=== PATIENT | female | born 1940 | race Caucasian/White ===

== ENCOUNTER 2020-05-03 17:10 | Inpatient (IN) | payer MEDICARE, MEDICAID ==
[~2020-05-03] VITALS: Ht 157.5 cm; Wt 64.0 kg
[2020-05-03] MEDS ORDERED: METF-960 PO (17:17)
[2020-05-03] MEDS ORDERED: LEVO50 PO (17:17)
[2020-05-03] MEDS ORDERED: AMLO-257 PO (17:17)
[2020-05-03] MEDS ORDERED: ASPI-728 PO (17:17)
[2020-05-03] MEDS ORDERED: LOSA50TA37 PO (17:17)
[2020-05-03] MEDS ORDERED: MORPHINE SULFATE 4 MG/ML SYRINGE IVP ONE ×2 (18:30)
[2020-05-03] MEDS ORDERED: 0.9% SODIUM CHLORIDE 10 ML SYRINGE IVP PRN ×2 (18:45→20:45)
[2020-05-03] MEDS ORDERED: ACETAMINOPHEN 325 MG TABLET PO PRN ×2 (18:45→20:45)
[2020-05-03] MEDS ORDERED: ONDANSETRON HCL 4 MG/2 ML VIAL IVP PRN ×2 (18:45→20:45)
[2020-05-03] MEDS ORDERED: MORPHINE SULFATE 4 MG/ML SYRINGE IVP PRN (18:45)
[2020-05-03 18:59] LABS: CREATININE 2.16 mg/dL (0.60-1.30); POTASSIUM 5.7 mmol/L (3.5-5.1)
[2020-05-03 19:05] LABS: ALBUMIN 3.5 g/dL (3.4-5.0); BILIRUBIN,TOTAL 0.4 mg/dL (0.1-1.0); TOTAL PROTEIN, SERUM 7.9 g/dL (6.4-8.2)
[2020-05-03 19:07] LABS: HEMATOCRIT 32.2 % (36-46); HEMOGLOBIN 10.8 g/dL (12.0-16.0); MEAN CORPUSCULAR HEMOGLOBIN 30.5 pg (26.0-34.0); MEAN CORPUSCULAR HGB CONC 33.7 G/dL (31.0-37.0); MEAN CORPUSCULAR VOLUME 91 fL (80-100); PLATELET COUNT (AUTO) 260 K/uL (150-450); RED BLOOD CELL COUNT(AUTO) 3.56 MIL/uL (4.00-5.20); RED CELL DISTRIBUTION WIDTH 14.3 % (11.5-14.5)
[2020-05-03] MEDS ORDERED: INSULIN REGULAR, HUMAN 100 UNITS/ML IVP ONE (19:15)
[2020-05-03] MEDS ORDERED: DEXTROSE 25%-WATER 2.5 GM/10 ML SYRINGE IVP ONE (19:15)
[2020-05-03] MEDS ORDERED: SODIUM CHLORIDE 0.9% 1,000 ML IV ONE (19:15)
[2020-05-03] MEDS ORDERED: DEXTROSE 50%-WATER 25 GM/50 ML SYRINGE IVP ONE (19:45)
[2020-05-03] MEDS ORDERED: INSULIN REGULAR, HUMAN 100 UNITS/ML SQ ONE (20:45)
[2020-05-03] MEDS ORDERED: SODIUM POLYSTYRENE SULFONATE 15 GM/60 ML SUSPENSION BOTTLE PO ONE (20:45)
[2020-05-03] MEDS ORDERED: DEXTROSE 50%-WATER 25 GM/50 ML SYRINGE IVP PRN (20:45)
[2020-05-03] MEDS ORDERED: ALBUTEROL SULFATE 2.5 MG/0.5 ML NEB SOLUTION NEB ONE (21:00)
[2020-05-03] MEDS ORDERED: SODIUM CHLORIDE 0.9% 1,900 ML IV SCH (21:00)
[2020-05-03] MEDS ORDERED: INSULIN GLARGINE,HUM.REC.ANLOG 100 UNITS/ML SQ SCH (21:00)
[2020-05-03 21:02] LABS: BAND NEUTROPHILS % (MANUAL) 25 % (0-5); LYMPHOCYTES % (MANUAL) 4 % (22-44); MONOCYTES % (MANUAL) 5 % (2-9); SEGMENTED NEUTROPHILS % 66 % (40-70)
[2020-05-03] MEDS: FAMOTIDINE 10 MG/ML 2 ML VIAL IVP SCH (21:53)
[2020-05-03 22:28] LABS: GLUCOSE,POINT OF CARE 138 MG/DL (70-110)
[2020-05-03 22:45] VITALS: BP 130/63
[2020-05-03] MEDS ORDERED: SODIUM CHLORIDE 0.9% 500 ML IV ONE (22:45)
[2020-05-04] MEDS: HEPARIN SODIUM,PORCINE 5,000 UNITS/ML VIAL SQ SCH ×3 (00:34→16:26)
[2020-05-04 05:11] VITALS: BP 133/61
[2020-05-04] MEDS ORDERED: SODIUM CHLORIDE 0.9% 500 ML IV ONE (05:58)
[2020-05-04] MEDS: LEVOTHYROXINE SODIUM 50 MCG TABLET PO SCH (06:24)
[2020-05-04 06:26] LABS: BASOPHILS % (AUTO) 0.3 % (0.0-2.0); EOSINOPHILS % (AUTO) 0.1 % (1.0-6.0); HEMATOCRIT 27.2 % (36-46); HEMOGLOBIN 9.8 g/dL (12.0-16.0); LYMPHOCYTES # (AUTO) 1.1 K/uL (1.0-4.8); LYMPHOCYTES % (AUTO) 11.1 % (22.0-44.0); MEAN CORPUSCULAR HEMOGLOBIN 32.8 pg (26.0-34.0); MEAN CORPUSCULAR HGB CONC 36.2 G/dL (31.0-37.0); MEAN CORPUSCULAR VOLUME 91 fL (80-100); MONOCYTES # (AUTO) 0.5 K/uL (0.1-1.0); MONOCYTES % (AUTO) 4.9 % (2.0-9.0); NEUTROPHILS # (AUTO) 8.5 K/uL (1.8-7.7); NEUTROPHILS % (AUTO) 83.6 % (40.0-70.0); PLATELET COUNT (AUTO) 219 K/uL (150-450)
[2020-05-04 06:59] LABS: ALBUMIN 2.8 g/dL (3.4-5.0); BILIRUBIN,TOTAL 0.2 mg/dL (0.1-1.0); CALCIUM, TOTAL 8.3 mg/dL (8.8-10.5); CREATININE 1.26 mg/dL (0.60-1.30); POTASSIUM 4.4 mmol/L (3.5-5.1); TOTAL PROTEIN, SERUM 6.6 g/dL (6.4-8.2)
[2020-05-04 07:08] LABS: PROTHROMBIN TIME 10.2 SEC (9.4-11.6)
[2020-05-04 07:40] VITALS: BP 146/66
[2020-05-04] MEDS ORDERED: AmLODIPine BESYLATE 5 MG TABLET PO SCH (09:00)
[2020-05-04] MEDS ORDERED: LOSARTAN POTASSIUM 50 MG TABLET PO SCH (09:00)
[2020-05-04] MEDS ORDERED: SODIUM CHLORIDE 0.9% 1,000 ML IV ONE (09:45)
[2020-05-04] MEDS: ASPIRIN 81 MG CHEWABLE TABLET PO SCH (10:09)
[2020-05-04] MEDS: FAMOTIDINE 10 MG/ML 2 ML VIAL IVP SCH ×2 (10:09→21:19)
[2020-05-04 11:34] VITALS: BP 146/63
[2020-05-04 12:12] LABS: APPEARANCE,URINE CLEAR (CLEAR); BILIRUBIN,URINE NEGATIVE (NEGATIVE); GLUCOSE, URINE (UA) NEGATIVE (NEGATIVE); KETONES,URINE NEGATIVE (NEGATIVE); LEUKOCYTE ESTERASE ,URINE NEGATIVE (NEGATIVE); NITRATE,URINE NEGATIVE (NEGATIVE); OCCULT BLOOD,URINE NEGATIVE (NEGATIVE); PROTEIN,URINE TRACE (NEGATIVE); UROBILINOGEN,URINE 0.2 mg/dL (<=1.0)
[2020-05-04 12:45] LABS: BACTERIA,URINE None Seen /HPF (None Seen); RBC,URINE None Seen /HPF (0-2); SQUAMOUS EPITHELIAL CELL,UR Few /LPF (None Seen); WBC,URINE 0-2 /HPF (0-5)
[2020-05-04 15:49] LABS: GLUCOMETER DEV NAME(LOC) 6N.2; GLUCOSE,POINT OF CARE 139 MG/DL (70-110)
[2020-05-04 15:49] LABS: GLUCOMETER DEV NAME(LOC) 6N.2; GLUCOSE,POINT OF CARE 124 MG/DL (70-110)
[2020-05-04 17:24] VITALS: BP 134/64
[2020-05-04 20:00] VITALS: BP 171/66
[2020-05-04 21:03] LABS: GLUCOMETER DEV NAME(LOC) 6N.2; GLUCOSE,POINT OF CARE 87 MG/DL (70-110)
[2020-05-04] MEDS: CALCIUM CIT/VITAMIN D3 200 MG-250 UNITS TABLET PO SCH (21:19)
[2020-05-05] MEDS: RINGERS SOLUTION,LACTATED 1,000 ML IV SCH ×2 (00:01→10:00)
[2020-05-05 02:03] LABS: GLUCOMETER DEV NAME(LOC) 6S.1; GLUCOSE,POINT OF CARE 87 MG/DL (70-110)
[2020-05-05 05:26] VITALS: BP 159/70
[2020-05-05] MEDS: LEVOTHYROXINE SODIUM 50 MCG TABLET PO SCH (06:25)
[2020-05-05 06:52] LABS: GLUCOMETER DEV NAME(LOC) 6S.1; GLUCOSE,POINT OF CARE 116 MG/DL (70-110)
[2020-05-05 07:40] VITALS: BP 146/66
[2020-05-05] MEDS: HEPARIN SODIUM,PORCINE 5,000 UNITS/ML VIAL SQ SCH ×2 (08:00)
[2020-05-05] MEDS: FAMOTIDINE 10 MG/ML 2 ML VIAL IVP SCH ×2 (08:47→20:02)
[2020-05-05] MEDS: CALCIUM CIT/VITAMIN D3 200 MG-250 UNITS TABLET PO SCH ×2 (09:00→20:02)
[2020-05-05] MEDS: ASPIRIN 81 MG CHEWABLE TABLET PO SCH (09:00)
[2020-05-05] MEDS ORDERED: LIDOCAINE 1%/EPI 1:200,000/PF 10 ML VIAL ONE (09:53)
[2020-05-05] MEDS ORDERED: BUPIVACAINE HCL/PF 0.25% 30 ML VIAL ONE (09:53)
[2020-05-05] MEDS ORDERED: RINGERS SOLUTION,LACTATED 1,000 ML IV ONE (09:53)
[2020-05-05] MEDS ORDERED: BUPIVACAINE LIPOSOME/PF 1.3%-13.3MG/ML SUSPENSION 20 ML VIAL INJ ONE (10:00)
[2020-05-05] MEDS ORDERED: FentaNYL CITRATE-PF 100 MCG/2 ML VIAL IVP PRN (11:15)
[2020-05-05] MEDS ORDERED: ACETAMINOPHEN 1000 MG/ISO-OSM 100 ML IV ONE (11:15)
[2020-05-05] MEDS ORDERED: FentaNYL CITRATE-PF 100 MCG/2 ML VIAL IVP ONE (12:00)
[2020-05-05] MEDS ORDERED: LIDOCAINE/PF 2% 5 ML VIAL INJ ONE (12:00)
[2020-05-05] MEDS ORDERED: KETAMINE HCL 50 MG/ML 10 ML VIAL IVP ONE (12:00)
[2020-05-05] MEDS ORDERED: PROPOFOL 1% 20 ML VIAL IVP ONE (12:00)
[2020-05-05] MEDS ORDERED: ONDANSETRON HCL 4 MG/2 ML VIAL IVP ONE (12:00)
[2020-05-05] MEDS ORDERED: MIDAZOLAM HCL 2 MG/2 ML VIAL IVP ONE (12:00)
[2020-05-05 13:59] VITALS: BP 160/66
[2020-05-05 15:53] VITALS: BP 158/68
[2020-05-05] MEDS: MORPHINE SULFATE 4 MG/ML SYRINGE IVP PRN (16:15)
[2020-05-05] MEDS: INSULIN LISPRO 100 UNITS/ML SQ PRN ×2 (16:56→22:02)
[2020-05-05 17:05] LABS: GLUCOMETER DEV NAME(LOC) 6N.2; GLUCOSE,POINT OF CARE 323 MG/DL (70-110)
[2020-05-05] MEDS: CeFAZolin 1 GM/DEXTROSE 50 ML IV SCH (20:02)
[2020-05-05 20:14] VITALS: BP 145/60
[2020-05-05] MEDS: OXYGEN THERAPY IH SCH (20:38)
[2020-05-05 22:08] LABS: GLUCOMETER DEV NAME(LOC) 6S.1; GLUCOSE,POINT OF CARE 240 MG/DL (70-110)
[2020-05-06] MEDS: CeFAZolin 1 GM/DEXTROSE 50 ML IV SCH ×2 (04:16→11:38)
[2020-05-06 05:00] VITALS: BP 155/65
[2020-05-06] MEDS: LEVOTHYROXINE SODIUM 50 MCG TABLET PO SCH (05:57)
[2020-05-06] MEDS: INSULIN LISPRO 100 UNITS/ML SQ PRN ×4 (06:06→21:30)
[2020-05-06 07:08] LABS: ANION GAP 7 mmol/L (8-16); CALCIUM, TOTAL 8.9 mg/dL (8.8-10.5); CARBON DIOXIDE 26 mmol/L (22-29); CHLORIDE 104 mmol/L (98-107); CREATININE 0.88 mg/dL (0.60-1.30); GLUCOSE,RANDOM 230 mg/dL (70-110); POTASSIUM 4.8 mmol/L (3.5-5.1); SODIUM SERUM 137 mmol/L (136-145); UREA NITROGEN, BLOOD 24 mg/dL (7-18)
[2020-05-06 07:09] LABS: GLOMERULAR FILTR. RATE CALC > 60 mL/min (>60)
[2020-05-06 07:18] LABS: BASOPHILS % (AUTO) 0.1 % (0.0-2.0); EOSINOPHILS % (AUTO) 0 % (1.0-6.0); HEMATOCRIT 27.2 % (36-46); LYMPHOCYTES # (AUTO) 0.9 K/uL (1.0-4.8); LYMPHOCYTES % (AUTO) 8.1 % (22.0-44.0); MEAN CORPUSCULAR HEMOGLOBIN 29.8 pg (26.0-34.0); MEAN CORPUSCULAR HGB CONC 33.3 G/dL (31.0-37.0); MEAN CORPUSCULAR VOLUME 90 fL (80-100); MONOCYTES # (AUTO) 0.7 K/uL (0.1-1.0); MONOCYTES % (AUTO) 6.2 % (2.0-9.0); NEUTROPHILS # (AUTO) 9.8 K/uL (1.8-7.7); PLATELET COUNT (AUTO) 200 K/uL (150-450); RED BLOOD CELL COUNT(AUTO) 3.04 MIL/uL (4.00-5.20); RED CELL DISTRIBUTION WIDTH 13.7 % (11.5-14.5)
[2020-05-06 07:20] LABS: NEUTROPHILS % (AUTO) 85.6 % (40.0-70.0)
[2020-05-06] MEDS: OXYGEN THERAPY IH SCH ×2 (08:00→20:00)
[2020-05-06 08:47] VITALS: BP 150/67
[2020-05-06] MEDS: ENOXAPARIN SODIUM 30 MG/0.3 ML PF SYRINGE SQ SCH (08:49)
[2020-05-06] MEDS: ASPIRIN 81 MG CHEWABLE TABLET PO SCH (08:50)
[2020-05-06] MEDS: FAMOTIDINE 10 MG/ML 2 ML VIAL IVP SCH ×2 (08:50→21:26)
[2020-05-06] MEDS: CALCIUM CIT/VITAMIN D3 200 MG-250 UNITS TABLET PO SCH ×2 (08:50→21:27)
[2020-05-06 12:11] VITALS: BP 160/69
[2020-05-06 13:01] LABS: GLUCOMETER DEV NAME(LOC) 6N.2; GLUCOSE,POINT OF CARE 234 MG/DL (70-110)
[2020-05-06 15:53] LABS: GLUCOMETER DEV NAME(LOC) 6S.1; GLUCOSE,POINT OF CARE 212 MG/DL (70-110)
[2020-05-06 16:40] VITALS: BP 159/76
[2020-05-06] MEDS: MORPHINE SULFATE 4 MG/ML SYRINGE IVP PRN (16:41)
[2020-05-06 18:00] LABS: GLUCOMETER DEV NAME(LOC) 6N.2; GLUCOSE,POINT OF CARE 143 MG/DL (70-110)
[2020-05-06] MEDS ORDERED: HydrALAZINE HCL 10 MG TABLET PO SCH (18:15)
[2020-05-06 20:55] VITALS: BP 153/78
[2020-05-06 22:05] LABS: GLUCOMETER DEV NAME(LOC) 6N.2; GLUCOSE,POINT OF CARE 150 MG/DL (70-110)
[2020-05-06] MEDS ORDERED: AmLODIPine BESYLATE 5 MG TABLET PO ONE (22:27)
[2020-05-06 23:35] VITALS: BP 130/67
[2020-05-07 05:25] VITALS: BP 130/64
[2020-05-07] MEDS: LEVOTHYROXINE SODIUM 50 MCG TABLET PO SCH (05:33)
[2020-05-07] MEDS: MORPHINE SULFATE 4 MG/ML SYRINGE IVP PRN ×2 (05:51→10:30)
[2020-05-07] MEDS: INSULIN LISPRO 100 UNITS/ML SQ PRN ×2 (06:05→12:11)
[2020-05-07 06:41] LABS: GLUCOMETER DEV NAME(LOC) 6S.1; GLUCOSE,POINT OF CARE 147 MG/DL (70-110)
[2020-05-07] MEDS: OXYGEN THERAPY IH SCH (08:00)
[2020-05-07] MEDS: ENOXAPARIN SODIUM 30 MG/0.3 ML PF SYRINGE SQ SCH (08:45)
[2020-05-07] MEDS: CALCIUM CIT/VITAMIN D3 200 MG-250 UNITS TABLET PO SCH (08:45)
[2020-05-07] MEDS: ASPIRIN 81 MG CHEWABLE TABLET PO SCH (08:46)
[2020-05-07] MEDS: FAMOTIDINE 10 MG/ML 2 ML VIAL IVP SCH (08:46)
[2020-05-07] MEDS ORDERED: AmLODIPine BESYLATE 5 MG TABLET PO SCH (09:00)
[2020-05-07 09:43] VITALS: BP 134/59
[2020-05-07 11:33] VITALS: BP 117/55
[2020-05-07 15:47] VITALS: BP 117/53
[2020-05-07 20:33] LABS: GLUCOMETER DEV NAME(LOC) 6S.1; GLUCOSE,POINT OF CARE 176 MG/DL (70-110)
[2020-05-07 20:33] LABS: GLUCOMETER DEV NAME(LOC) 6S.1; GLUCOSE,POINT OF CARE 163 MG/DL (70-110)
[2020-05-08] MEDS ORDERED: METF-961 PO (22:50)
== END 2020-05-07 17:15 | DRG 481 ==
LOC: EMS 17:20 → 6N 18:43
PROVIDERS: ADMIT Internal Medicine; ATTEND Internal Medicine
PROC: 0QS706Z Reposition Left Upper Femur with Intramedullary Internal Fixation Device, Open Approach (ICD-10-PCS; principal; 2020-05-05 10:30)
DX: S72.145A Nondisplaced intertrochanteric fracture of left femur, initial encounter for closed fracture (principal); N17.9 Acute kidney failure, unspecified; R65.10 Systemic inflammatory response syndrome (SIRS) of non-infectious origin without acute organ dysfunction; W01.0XXA Fall on same level from slipping, tripping and stumbling without subsequent striking against object, initial encounter; E87.5 Hyperkalemia; I10 Essential (primary) hypertension; E11.9 Type 2 diabetes mellitus without complications; D63.8 Anemia in other chronic diseases classified elsewhere; E03.9 Hypothyroidism, unspecified; Z79.82 Long term (current) use of aspirin; Z79.899 Other long term (current) drug therapy; Y93.89 Activity, other specified; Y92.89 Other specified places as the place of occurrence of the external cause; Y99.8 Other external cause status; Z79.84 Long term (current) use of oral hypoglycemic drugs; Z03.818 Encounter for observation for suspected exposure to other biological agents ruled out
CPT/HCPCS: 72170; 73503; 73552; 76700; 86850; 86900; 86901; 93005; 93306; 97162; 97166; 97530; 97535; 99291; C9290; J0690; J1644; J1650; J1815; J2250; J2270; J2405; J2704; J3010; J3490; J7030; J7040; J7120; 36415-L1; 36415-TC; 71045-TC; 87635; C1716

== ENCOUNTER 2020-05-07 17:17 | Inpatient (IN) | payer MEDICARE, MEDICAID ==
[~2020-05-07] VITALS: Ht 152.4 cm; Wt 62.6 kg
[~2020-05-07 17:17] MED LIST: AMLO-257 PO; ASPI-728 PO; LEVO50 PO; LOSA50TA37 PO; METF-960 PO
[2020-05-07] MEDS ORDERED: DEXTROSE 50%-WATER 25 GM/50 ML SYRINGE IVP PRN ×2 (20:00→21:00)
[2020-05-07] MEDS: DOCUSATE SODIUM 100 MG CAPSULE PO SCH (20:34)
[2020-05-07] MEDS: HYDROCODONE/ACETAMINOPHEN 5-325 MG TABLET PO PRN (20:35)
[2020-05-07] MEDS: FAMOTIDINE 20 MG TABLET PO SCH (20:35)
[2020-05-07] MEDS: SENNA 187 MG TABLET PO SCH (20:35)
[2020-05-07] MEDS: CALCIUM CIT/VITAMIN D3 200 MG-250 UNITS TABLET PO SCH (20:35)
[2020-05-07 20:50] LABS: GLUCOMETER DEV NAME(LOC) 2WR.2; GLUCOSE,POINT OF CARE 178 MG/DL (70-110)
[2020-05-07 22:30] VITALS: BP 179/76
[2020-05-08 05:00] VITALS: BP 131/63
[2020-05-08] MEDS: LEVOTHYROXINE SODIUM 50 MCG TABLET PO SCH (05:44)
[2020-05-08 06:37] LABS: GLUCOMETER DEV NAME(LOC) 2WR.2; GLUCOSE,POINT OF CARE 161 MG/DL (70-110)
[2020-05-08 06:48] LABS: BASOPHILS % (AUTO) 0.6 % (0.0-2.0); EOSINOPHILS % (AUTO) 5.5 % (1.0-6.0); HEMOGLOBIN 9.3 g/dL (12.0-16.0); LYMPHOCYTES # (AUTO) 2.4 K/uL (1.0-4.8); LYMPHOCYTES % (AUTO) 24.1 % (22.0-44.0); MEAN CORPUSCULAR HEMOGLOBIN 30.6 pg (26.0-34.0); MEAN CORPUSCULAR HGB CONC 34.3 G/dL (31.0-37.0); MEAN CORPUSCULAR VOLUME 89 fL (80-100); MONOCYTES # (AUTO) 1.3 K/uL (0.1-1.0); MONOCYTES % (AUTO) 13.1 % (2.0-9.0); NEUTROPHILS # (AUTO) 5.6 K/uL (1.8-7.7); NEUTROPHILS % (AUTO) 56.7 % (40.0-70.0); PLATELET COUNT (AUTO) 232 K/uL (150-450); RED BLOOD CELL COUNT(AUTO) 3.03 MIL/uL (4.00-5.20); RED CELL DISTRIBUTION WIDTH 13.5 % (11.5-14.5)
[2020-05-08 07:22] LABS: ALBUMIN 2.5 g/dL (3.4-5.0); BILIRUBIN,TOTAL 0.3 mg/dL (0.1-1.0); CREATININE 0.93 mg/dL (0.60-1.30); POTASSIUM 5.2 mmol/L (3.5-5.1); TOTAL PROTEIN, SERUM 6.6 g/dL (6.4-8.2)
[2020-05-08] MEDS: CALCIUM CIT/VITAMIN D3 200 MG-250 UNITS TABLET PO SCH ×2 (09:14→20:30)
[2020-05-08] MEDS: AmLODIPine BESYLATE 5 MG TABLET PO SCH (09:14)
[2020-05-08] MEDS: FAMOTIDINE 20 MG TABLET PO SCH ×2 (09:14→20:30)
[2020-05-08] MEDS: ASPIRIN 81 MG EC TABLET PO SCH (09:15)
[2020-05-08] MEDS: DOCUSATE SODIUM 100 MG CAPSULE PO SCH ×2 (09:15→20:30)
[2020-05-08] MEDS: ENOXAPARIN SODIUM 40 MG/0.4 ML PF SYRINGE SQ SCH (09:15)
[2020-05-08] MEDS: HYDROCODONE/ACETAMINOPHEN 5-325 MG TABLET PO PRN (09:17)
[2020-05-08] MEDS: INSULIN LISPRO 100 UNITS/ML SQ PRN ×4 (09:32→20:36)
[2020-05-08] MEDS ORDERED: SODIUM POLYSTYRENE SULFONATE 15 GM/60 ML SUSPENSION BOTTLE PO ONE (11:30)
[2020-05-08 12:38] LABS: GLUCOMETER DEV NAME(LOC) 2WR.2; GLUCOSE,POINT OF CARE 164 MG/DL (70-110)
[2020-05-08 16:01] VITALS: BP 148/58
[2020-05-08 16:04] VITALS: BP 161/69
[2020-05-08] MEDS: ACETAMINOPHEN 325 MG TABLET PO PRN (16:49)
[2020-05-08] MEDS: SENNA 187 MG TABLET PO SCH (20:30)
[2020-05-08 21:50] LABS: GLUCOMETER DEV NAME(LOC) 2WR.2; GLUCOSE,POINT OF CARE 205 MG/DL (70-110)
[2020-05-08] MEDS ORDERED: METF-961 PO (22:50)
[2020-05-09 00:01] VITALS: BP 138/65
[2020-05-09 05:07] LABS: GLUCOMETER DEV NAME(LOC) 2WR.1C; GLUCOSE,POINT OF CARE 197 MG/DL (70-110)
[2020-05-09] MEDS: DOCUSATE SODIUM 283 MG/5 ML MINI-ENEMA PR PRN (05:09)
[2020-05-09] MEDS: LEVOTHYROXINE SODIUM 50 MCG TABLET PO SCH (05:34)
[2020-05-09 06:02] LABS: GLUCOMETER DEV NAME(LOC) 2WR.2; GLUCOSE,POINT OF CARE 182 MG/DL (70-110)
[2020-05-09] MEDS: INSULIN LISPRO 100 UNITS/ML SQ PRN ×4 (08:01→21:08)
[2020-05-09] MEDS: ENOXAPARIN SODIUM 40 MG/0.4 ML PF SYRINGE SQ SCH (08:02)
[2020-05-09] MEDS: DOCUSATE SODIUM 100 MG CAPSULE PO SCH (08:03)
[2020-05-09] MEDS: CALCIUM CIT/VITAMIN D3 200 MG-250 UNITS TABLET PO SCH ×2 (08:03→21:05)
[2020-05-09] MEDS: AmLODIPine BESYLATE 5 MG TABLET PO SCH (08:03)
[2020-05-09] MEDS: ASPIRIN 81 MG EC TABLET PO SCH (08:03)
[2020-05-09] MEDS: FAMOTIDINE 20 MG TABLET PO SCH ×2 (08:03→21:05)
[2020-05-09] MEDS: HYDROCODONE/ACETAMINOPHEN 5-325 MG TABLET PO PRN ×3 (08:03→21:05)
[2020-05-09 08:05] VITALS: BP 151/71
[2020-05-09 12:33] LABS: POTASSIUM 4.6 mmol/L (3.5-5.1); THYROID STIMULATING HORMONE 2.83 uIU/mL (0.36-3.74)
[2020-05-09 12:46] LABS: GLUCOMETER DEV NAME(LOC) 2WR.1C; GLUCOSE,POINT OF CARE 213 MG/DL (70-110)
[2020-05-09 13:42] LABS: HEMOGLOBIN A1C 6.3 % (3.8-5.6)
[2020-05-09 15:57] VITALS: BP 117/66
[2020-05-09] MEDS: ACETAMINOPHEN 325 MG TABLET PO PRN (15:59)
[2020-05-09] MEDS ORDERED: MetFORMIN HCL 500 MG TABLET PO SCH (17:00)
[2020-05-09] MEDS ORDERED: BISACODYL 10 MG RECTAL RECTAL SUPPOSITORY PR PRN (18:00)
[2020-05-09] MEDS: SENNA 187 MG TABLET PO SCH (21:05)
[2020-05-09] MEDS: DOCUSATE SODIUM 250 MG CAPSULE PO SCH (21:05)
[2020-05-09 22:04] LABS: GLUCOMETER DEV NAME(LOC) 2WR.1C; GLUCOSE,POINT OF CARE 200 MG/DL (70-110)
[2020-05-09 22:04] LABS: GLUCOMETER DEV NAME(LOC) 2WR.1C; GLUCOSE,POINT OF CARE 209 MG/DL (70-110)
[2020-05-10 02:03] VITALS: BP 138/67
[2020-05-10] MEDS: DOCUSATE SODIUM 283 MG/5 ML MINI-ENEMA PR PRN (05:26)
[2020-05-10] MEDS: LEVOTHYROXINE SODIUM 50 MCG TABLET PO SCH (05:42)
[2020-05-10 05:46] LABS: GLUCOMETER DEV NAME(LOC) 2WR.1C; GLUCOSE,POINT OF CARE 167 MG/DL (70-110)
[2020-05-10 08:49] VITALS: BP 134/63
[2020-05-10] MEDS: INSULIN LISPRO 100 UNITS/ML SQ PRN ×3 (08:56→20:27)
[2020-05-10] MEDS: HYDROCODONE/ACETAMINOPHEN 5-325 MG TABLET PO PRN ×3 (09:03→13:56)
[2020-05-10] MEDS: FAMOTIDINE 20 MG TABLET PO SCH ×2 (09:03→20:28)
[2020-05-10] MEDS: DOCUSATE SODIUM 250 MG CAPSULE PO SCH ×2 (09:04→20:28)
[2020-05-10] MEDS: CALCIUM CIT/VITAMIN D3 200 MG-250 UNITS TABLET PO SCH ×2 (09:04→20:28)
[2020-05-10] MEDS: ASPIRIN 81 MG EC TABLET PO SCH (09:04)
[2020-05-10] MEDS: ENOXAPARIN SODIUM 40 MG/0.4 ML PF SYRINGE SQ SCH (09:04)
[2020-05-10] MEDS: AmLODIPine BESYLATE 10 MG TABLET PO SCH (09:09)
[2020-05-10] MEDS: ACETAMINOPHEN 325 MG TABLET PO PRN (10:20)
[2020-05-10 12:34] LABS: GLUCOMETER DEV NAME(LOC) 2WR.2; GLUCOSE,POINT OF CARE 206 MG/DL (70-110)
[2020-05-10] MEDS: MetFORMIN HCL 500 MG TABLET PO SCH ×2 (13:12→17:09)
[2020-05-10 16:00] VITALS: BP 122/65
[2020-05-10] MEDS ORDERED: MetFORMIN HCL 850 MG TABLET PO SCH (17:00)
[2020-05-10 17:45] LABS: GLUCOMETER DEV NAME(LOC) 2WR.1C; GLUCOSE,POINT OF CARE 126 MG/DL (70-110)
[2020-05-10] MEDS: SENNA 187 MG TABLET PO SCH (20:28)
[2020-05-10] MEDS: HYDROCODONE/ACETAMINOPHEN 10-325 MG TABLET PO PRN (20:36)
[2020-05-10 20:42] LABS: GLUCOMETER DEV NAME(LOC) 2WR.1C; GLUCOSE,POINT OF CARE 186 MG/DL (70-110)
[2020-05-11 04:45] VITALS: BP 139/55
[2020-05-11 05:55] LABS: GLUCOMETER DEV NAME(LOC) 2WR.2; GLUCOSE,POINT OF CARE 168 MG/DL (70-110)
[2020-05-11] MEDS: LEVOTHYROXINE SODIUM 50 MCG TABLET PO SCH (06:03)
[2020-05-11 07:55] VITALS: BP 144/63
[2020-05-11] MEDS: INSULIN LISPRO 100 UNITS/ML SQ PRN ×3 (08:47→20:25)
[2020-05-11] MEDS: MetFORMIN HCL 500 MG TABLET PO SCH ×2 (08:50→16:14)
[2020-05-11] MEDS: FAMOTIDINE 20 MG TABLET PO SCH ×2 (09:10→20:20)
[2020-05-11] MEDS: ASPIRIN 81 MG EC TABLET PO SCH (09:10)
[2020-05-11] MEDS: HYDROCODONE/ACETAMINOPHEN 10-325 MG TABLET PO PRN (09:10)
[2020-05-11] MEDS: AmLODIPine BESYLATE 10 MG TABLET PO SCH (09:10)
[2020-05-11] MEDS: CALCIUM CIT/VITAMIN D3 200 MG-250 UNITS TABLET PO SCH ×2 (09:10→20:21)
[2020-05-11] MEDS: DOCUSATE SODIUM 250 MG CAPSULE PO SCH ×2 (09:10→20:20)
[2020-05-11] MEDS: ENOXAPARIN SODIUM 40 MG/0.4 ML PF SYRINGE SQ SCH (09:11)
[2020-05-11 11:28] LABS: GLUCOMETER DEV NAME(LOC) 2WR.2; GLUCOSE,POINT OF CARE 154 MG/DL (70-110)
[2020-05-11 13:39] LABS: GLUCOMETER DEV NAME(LOC) 2WR.2; GLUCOSE,POINT OF CARE 137 MG/DL (70-110)
[2020-05-11] MEDS: HYDROCODONE/ACETAMINOPHEN 5-325 MG TABLET PO PRN (14:34)
[2020-05-11 15:26] VITALS: BP 144/65
[2020-05-11 18:31] LABS: GLUCOMETER DEV NAME(LOC) 2WR.2; GLUCOSE,POINT OF CARE 220 MG/DL (70-110)
[2020-05-11] MEDS: SENNA 187 MG TABLET PO SCH (20:26)
[2020-05-11 21:02] LABS: GLUCOMETER DEV NAME(LOC) 2WR.2; GLUCOSE,POINT OF CARE 149 MG/DL (70-110)
[2020-05-12] VITALS: BP 135/67
[2020-05-12] MEDS: LEVOTHYROXINE SODIUM 50 MCG TABLET PO SCH (06:04)
[2020-05-12 07:17] LABS: GLUCOMETER DEV NAME(LOC) 2WR.2; GLUCOSE,POINT OF CARE 169 MG/DL (70-110)
[2020-05-12 08:03] VITALS: BP 140/73
[2020-05-12] MEDS: CALCIUM CIT/VITAMIN D3 200 MG-250 UNITS TABLET PO SCH ×2 (08:13→20:02)
[2020-05-12] MEDS: DOCUSATE SODIUM 250 MG CAPSULE PO SCH ×2 (08:13→20:02)
[2020-05-12] MEDS: LOSARTAN POTASSIUM 25 MG TABLET PO SCH (08:13)
[2020-05-12] MEDS: FAMOTIDINE 20 MG TABLET PO SCH ×2 (08:13→20:02)
[2020-05-12] MEDS: ASPIRIN 81 MG EC TABLET PO SCH (08:13)
[2020-05-12] MEDS: AmLODIPine BESYLATE 5 MG TABLET PO SCH (08:13)
[2020-05-12] MEDS: ENOXAPARIN SODIUM 40 MG/0.4 ML PF SYRINGE SQ SCH (08:13)
[2020-05-12] MEDS: MetFORMIN HCL 500 MG TABLET PO SCH ×2 (08:13→17:55)
[2020-05-12] MEDS: ACETAMINOPHEN 325 MG TABLET PO PRN (08:14)
[2020-05-12] MEDS: INSULIN LISPRO 100 UNITS/ML SQ PRN ×4 (08:28→20:25)
[2020-05-12 15:06] LABS: GLUCOMETER DEV NAME(LOC) 2WR.1C; GLUCOSE,POINT OF CARE 157 MG/DL (70-110)
[2020-05-12 15:10] VITALS: BP 120/60
[2020-05-12 17:46] LABS: GLUCOMETER DEV NAME(LOC) 2WR.2; GLUCOSE,POINT OF CARE 151 MG/DL (70-110)
[2020-05-12] MEDS: HYDROCODONE/ACETAMINOPHEN 5-325 MG TABLET PO PRN (19:07)
[2020-05-12] MEDS: SENNA 187 MG TABLET PO SCH (20:02)
[2020-05-12 21:37] LABS: GLUCOMETER DEV NAME(LOC) 2WR.2; GLUCOSE,POINT OF CARE 164 MG/DL (70-110)
[2020-05-13 00:42] VITALS: BP 138/57
[2020-05-13 06:03] LABS: GLUCOMETER DEV NAME(LOC) 2WR.1C; GLUCOSE,POINT OF CARE 135 MG/DL (70-110)
[2020-05-13] MEDS: LEVOTHYROXINE SODIUM 50 MCG TABLET PO SCH (06:58)
[2020-05-13 07:40] VITALS: BP 153/63
[2020-05-13] MEDS: AmLODIPine BESYLATE 5 MG TABLET PO SCH (07:40)
[2020-05-13] MEDS: HYDROCODONE/ACETAMINOPHEN 5-325 MG TABLET PO PRN ×2 (07:40→22:20)
[2020-05-13] MEDS: FAMOTIDINE 20 MG TABLET PO SCH ×2 (07:40→20:30)
[2020-05-13] MEDS: ENOXAPARIN SODIUM 40 MG/0.4 ML PF SYRINGE SQ SCH (07:41)
[2020-05-13] MEDS: LOSARTAN POTASSIUM 25 MG TABLET PO SCH (07:41)
[2020-05-13] MEDS: CALCIUM CIT/VITAMIN D3 200 MG-250 UNITS TABLET PO SCH ×2 (07:41→20:30)
[2020-05-13] MEDS: ASPIRIN 81 MG EC TABLET PO SCH (07:41)
[2020-05-13] MEDS: DOCUSATE SODIUM 250 MG CAPSULE PO SCH ×2 (07:41→20:30)
[2020-05-13] MEDS: MetFORMIN HCL 500 MG TABLET PO SCH ×2 (07:41→18:25)
[2020-05-13] MEDS: INSULIN LISPRO 100 UNITS/ML SQ PRN ×2 (13:46→21:48)
[2020-05-13 14:28] LABS: GLUCOMETER DEV NAME(LOC) 2WR.2; GLUCOSE,POINT OF CARE 206 MG/DL (70-110)
[2020-05-13 15:35] VITALS: BP 116/51
[2020-05-13] MEDS: SENNA 187 MG TABLET PO SCH (20:31)
[2020-05-13 21:55] LABS: GLUCOMETER DEV NAME(LOC) 2WR.2; GLUCOSE,POINT OF CARE 186 MG/DL (70-110)
[2020-05-14] VITALS: BP 118/56
[2020-05-14] MEDS: HYDROCODONE/ACETAMINOPHEN 5-325 MG TABLET PO PRN (04:23)
[2020-05-14 04:44] LABS: GLUCOMETER DEV NAME(LOC) 2WR.1C; GLUCOSE,POINT OF CARE 107 MG/DL (70-110)
[2020-05-14] MEDS: LEVOTHYROXINE SODIUM 50 MCG TABLET PO SCH (05:53)
[2020-05-14 06:08] LABS: GLUCOMETER DEV NAME(LOC) 2WR.2; GLUCOSE,POINT OF CARE 149 MG/DL (70-110)
[2020-05-14] MEDS: MetFORMIN HCL 500 MG TABLET PO SCH ×2 (08:11→18:25)
[2020-05-14] MEDS: INSULIN LISPRO 100 UNITS/ML SQ PRN ×3 (08:11→21:49)
[2020-05-14 08:36] VITALS: BP 137/64
[2020-05-14] MEDS: AmLODIPine BESYLATE 5 MG TABLET PO SCH (08:53)
[2020-05-14] MEDS: CALCIUM CIT/VITAMIN D3 200 MG-250 UNITS TABLET PO SCH ×2 (08:53→21:02)
[2020-05-14] MEDS: ASPIRIN 81 MG EC TABLET PO SCH (08:53)
[2020-05-14] MEDS: DOCUSATE SODIUM 250 MG CAPSULE PO SCH ×2 (08:53→21:02)
[2020-05-14] MEDS: FAMOTIDINE 20 MG TABLET PO SCH ×2 (08:53→21:02)
[2020-05-14] MEDS: LOSARTAN POTASSIUM 25 MG TABLET PO SCH (08:53)
[2020-05-14] MEDS: ENOXAPARIN SODIUM 40 MG/0.4 ML PF SYRINGE SQ SCH (08:54)
[2020-05-14 13:50] LABS: GLUCOMETER DEV NAME(LOC) 2WR.2; GLUCOSE,POINT OF CARE 125 MG/DL (70-110)
[2020-05-14 15:42] VITALS: BP 139/62
[2020-05-14 18:04] LABS: GLUCOMETER DEV NAME(LOC) 2WR.1C; GLUCOSE,POINT OF CARE 174 MG/DL (70-110)
[2020-05-14] MEDS: ACETAMINOPHEN 325 MG TABLET PO PRN (21:02)
[2020-05-14] MEDS: SENNA 187 MG TABLET PO SCH (21:02)
[2020-05-14 22:19] LABS: GLUCOMETER DEV NAME(LOC) 2WR.2; GLUCOSE,POINT OF CARE 153 MG/DL (70-110)
[2020-05-15 01:54] VITALS: BP 142/53
[2020-05-15] MEDS: LEVOTHYROXINE SODIUM 50 MCG TABLET PO SCH (05:51)
[2020-05-15 06:10] LABS: GLUCOMETER DEV NAME(LOC) 2WR.1C; GLUCOSE,POINT OF CARE 128 MG/DL (70-110)
[2020-05-15 06:20] LABS: BASOPHILS % (AUTO) 0.8 % (0.0-2.0); EOSINOPHILS % (AUTO) 3.1 % (1.0-6.0); HEMATOCRIT 22.6 % (36-46); LYMPHOCYTES # (AUTO) 1.9 K/uL (1.0-4.8); LYMPHOCYTES % (AUTO) 21.6 % (22.0-44.0); MEAN CORPUSCULAR HEMOGLOBIN 31.9 pg (26.0-34.0); MEAN CORPUSCULAR HGB CONC 35.5 G/dL (31.0-37.0); MEAN CORPUSCULAR VOLUME 90 fL (80-100); MONOCYTES # (AUTO) 0.7 K/uL (0.1-1.0); MONOCYTES % (AUTO) 8.3 % (2.0-9.0); NEUTROPHILS # (AUTO) 5.9 K/uL (1.8-7.7); NEUTROPHILS % (AUTO) 66.2 % (40.0-70.0); PLATELET COUNT (AUTO) 385 K/uL (150-450); RED BLOOD CELL COUNT(AUTO) 2.52 MIL/uL (4.00-5.20); RED CELL DISTRIBUTION WIDTH 14.2 % (11.5-14.5)
[2020-05-15 06:36] LABS: CALCIUM, TOTAL 9.3 mg/dL (8.8-10.5); CREATININE 0.92 mg/dL (0.60-1.30); POTASSIUM 4.6 mmol/L (3.5-5.1)
[2020-05-15] MEDS: MetFORMIN HCL 500 MG TABLET PO SCH ×2 (07:30→17:52)
[2020-05-15] MEDS: DOCUSATE SODIUM 250 MG CAPSULE PO SCH ×4 (08:13→23:14)
[2020-05-15] MEDS: AmLODIPine BESYLATE 5 MG TABLET PO SCH (08:13)
[2020-05-15] MEDS: SitaGLIPtin PHOSPHATE 25 MG TABLET PO SCH (08:14)
[2020-05-15] MEDS: FAMOTIDINE 20 MG TABLET PO SCH ×2 (08:14→20:34)
[2020-05-15] MEDS: ASPIRIN 81 MG EC TABLET PO SCH (08:14)
[2020-05-15] MEDS: LOSARTAN POTASSIUM 25 MG TABLET PO SCH (08:14)
[2020-05-15] MEDS: CALCIUM CIT/VITAMIN D3 200 MG-250 UNITS TABLET PO SCH ×2 (08:14→20:33)
[2020-05-15 08:17] VITALS: BP 141/88
[2020-05-15] MEDS: HYDROCODONE/ACETAMINOPHEN 5-325 MG TABLET PO PRN (08:17)
[2020-05-15] MEDS: ENOXAPARIN SODIUM 40 MG/0.4 ML PF SYRINGE SQ SCH (08:20)
[2020-05-15] MEDS: INSULIN LISPRO 100 UNITS/ML SQ PRN ×2 (12:50→17:59)
[2020-05-15 13:31] LABS: GLUCOMETER DEV NAME(LOC) 2WR.2; GLUCOSE,POINT OF CARE 146 MG/DL (70-110)
[2020-05-15 15:00] VITALS: BP 152/72
[2020-05-15] MEDS: FERROUS GLUCONATE 324 MG TABLET PO SCH (17:53)
[2020-05-15 17:56] LABS: GLUCOMETER DEV NAME(LOC) 2WR.1C; GLUCOSE,POINT OF CARE 153 MG/DL (70-110)
[2020-05-15 18:00] VITALS: BP 143/63
[2020-05-15 18:08] LABS: APPEARANCE,URINE CLOUDY (CLEAR); BILIRUBIN,URINE NEGATIVE (NEGATIVE); GLUCOSE, URINE (UA) NEGATIVE (NEGATIVE); KETONES,URINE NEGATIVE (NEGATIVE); LEUKOCYTE ESTERASE ,URINE NEGATIVE (NEGATIVE); NITRATE,URINE NEGATIVE (NEGATIVE); OCCULT BLOOD,URINE NEGATIVE (NEGATIVE); PROTEIN,URINE NEGATIVE (NEGATIVE); UROBILINOGEN,URINE 0.2 mg/dL (<=1.0)
[2020-05-15] MEDS: SENNA 187 MG TABLET PO SCH ×3 (20:33→23:14)
[2020-05-15 22:37] LABS: GLUCOMETER DEV NAME(LOC) 2WR.2; GLUCOSE,POINT OF CARE 90 MG/DL (70-110)
[2020-05-16] VITALS: BP 140/63
[2020-05-16] MEDS: LEVOTHYROXINE SODIUM 50 MCG TABLET PO SCH (05:27)
[2020-05-16] MEDS: HYDROCODONE/ACETAMINOPHEN 5-325 MG TABLET PO PRN (06:37)
[2020-05-16 07:22] LABS: BASOPHILS % (AUTO) 0.6 % (0.0-2.0); EOSINOPHILS % (AUTO) 2.3 % (1.0-6.0); HEMATOCRIT 24.5 % (36-46); HEMOGLOBIN 8.5 g/dL (12.0-16.0); LYMPHOCYTES # (AUTO) 1.8 K/uL (1.0-4.8); LYMPHOCYTES % (AUTO) 17.2 % (22.0-44.0); MEAN CORPUSCULAR HGB CONC 34.5 G/dL (31.0-37.0); MEAN CORPUSCULAR VOLUME 90 fL (80-100); MONOCYTES # (AUTO) 0.8 K/uL (0.1-1.0); MONOCYTES % (AUTO) 7.6 % (2.0-9.0); NEUTROPHILS # (AUTO) 7.4 K/uL (1.8-7.7); NEUTROPHILS % (AUTO) 72.3 % (40.0-70.0); PLATELET COUNT (AUTO) 408 K/uL (150-450); RED BLOOD CELL COUNT(AUTO) 2.72 MIL/uL (4.00-5.20); RED CELL DISTRIBUTION WIDTH 14.3 % (11.5-14.5)
[2020-05-16 07:38] LABS: % IRON SATURATION 25.1 % (22-44)
[2020-05-16 08:30] VITALS: BP 134/67
[2020-05-16] MEDS: LOSARTAN POTASSIUM 25 MG TABLET PO SCH (08:32)
[2020-05-16] MEDS: SitaGLIPtin PHOSPHATE 25 MG TABLET PO SCH (08:32)
[2020-05-16] MEDS: CALCIUM CIT/VITAMIN D3 200 MG-250 UNITS TABLET PO SCH ×2 (08:32→20:31)
[2020-05-16] MEDS: AmLODIPine BESYLATE 5 MG TABLET PO SCH (08:33)
[2020-05-16] MEDS: FERROUS GLUCONATE 324 MG TABLET PO SCH ×2 (08:33→17:26)
[2020-05-16] MEDS: DOCUSATE SODIUM 250 MG CAPSULE PO SCH ×2 (08:33→20:31)
[2020-05-16] MEDS: ASPIRIN 81 MG EC TABLET PO SCH (08:33)
[2020-05-16] MEDS: FAMOTIDINE 20 MG TABLET PO SCH ×2 (08:34→20:31)
[2020-05-16] MEDS: ENOXAPARIN SODIUM 40 MG/0.4 ML PF SYRINGE SQ SCH (08:34)
[2020-05-16] MEDS: MetFORMIN HCL 500 MG TABLET PO SCH ×2 (08:36→17:26)
[2020-05-16 12:14] LABS: GLUCOMETER DEV NAME(LOC) 2WR.1C; GLUCOSE,POINT OF CARE 136 MG/DL (70-110)
[2020-05-16] MEDS: ACETAMINOPHEN 325 MG TABLET PO PRN (12:29)
[2020-05-16 13:49] LABS: GLUCOMETER DEV NAME(LOC) 2WR.2; GLUCOSE,POINT OF CARE 133 MG/DL (70-110)
[2020-05-16 15:00] VITALS: BP 121/55
[2020-05-16] MEDS: INSULIN LISPRO 100 UNITS/ML SQ PRN (17:30)
[2020-05-16 18:17] LABS: GLUCOMETER DEV NAME(LOC) 2WR.1C; GLUCOSE,POINT OF CARE 145 MG/DL (70-110)
[2020-05-16] MEDS: SENNA 187 MG TABLET PO SCH (20:31)
[2020-05-16 22:07] LABS: GLUCOMETER DEV NAME(LOC) 2WR.2B; GLUCOSE,POINT OF CARE 89 MG/DL (70-110)
[2020-05-17 02:00] VITALS: BP 134/61
[2020-05-17 05:57] LABS: GLUCOMETER DEV NAME(LOC) 2WR.1C; GLUCOSE,POINT OF CARE 118 MG/DL (70-110)
[2020-05-17] MEDS: LEVOTHYROXINE SODIUM 50 MCG TABLET PO SCH (06:48)
[2020-05-17 08:12] VITALS: BP 137/70
[2020-05-17] MEDS: FERROUS GLUCONATE 324 MG TABLET PO SCH ×2 (08:14→17:47)
[2020-05-17] MEDS: CALCIUM CIT/VITAMIN D3 200 MG-250 UNITS TABLET PO SCH ×2 (08:14→20:40)
[2020-05-17] MEDS: LOSARTAN POTASSIUM 25 MG TABLET PO SCH (08:14)
[2020-05-17] MEDS: MetFORMIN HCL 500 MG TABLET PO SCH ×2 (08:14→17:47)
[2020-05-17] MEDS: DOCUSATE SODIUM 250 MG CAPSULE PO SCH ×2 (08:14→20:41)
[2020-05-17] MEDS: SitaGLIPtin PHOSPHATE 25 MG TABLET PO SCH (08:15)
[2020-05-17] MEDS: FAMOTIDINE 20 MG TABLET PO SCH ×2 (08:15→20:40)
[2020-05-17] MEDS: ASPIRIN 81 MG EC TABLET PO SCH (08:15)
[2020-05-17] MEDS: EPOETIN ALFA 10,000 UNITS/ML VIAL SQ SCH (08:16)
[2020-05-17] MEDS: ENOXAPARIN SODIUM 40 MG/0.4 ML PF SYRINGE SQ SCH (08:16)
[2020-05-17] MEDS: AmLODIPine BESYLATE 5 MG TABLET PO SCH (08:17)
[2020-05-17 12:20] LABS: GLUCOMETER DEV NAME(LOC) 2WR.2B; GLUCOSE,POINT OF CARE 106 MG/DL (70-110)
[2020-05-17 16:37] VITALS: BP 118/54
[2020-05-17 18:15] LABS: GLUCOMETER DEV NAME(LOC) 2WR.1C; GLUCOSE,POINT OF CARE 136 MG/DL (70-110)
[2020-05-17] MEDS: SENNA 187 MG TABLET PO SCH (20:41)
[2020-05-17 22:26] LABS: GLUCOMETER DEV NAME(LOC) 2WR.1C; GLUCOSE,POINT OF CARE 118 MG/DL (70-110)
[2020-05-18] MEDS ORDERED: METF-960 PO
[2020-05-18] MEDS ORDERED: LOSA25TA71 PO
[2020-05-18] MEDS ORDERED: FERG325 PO
[2020-05-18] MEDS ORDERED: LEVO50 PO
[2020-05-18] MEDS ORDERED: FAMO20 PO
[2020-05-18] MEDS ORDERED: SITA25 PO
[2020-05-18] MEDS ORDERED: CALC-1153 PO
[2020-05-18 00:21] VITALS: BP 121/60
[2020-05-18] MEDS: HYDROCODONE/ACETAMINOPHEN 5-325 MG TABLET PO PRN (00:21)
[2020-05-18] MEDS: LEVOTHYROXINE SODIUM 50 MCG TABLET PO SCH (06:19)
[2020-05-18 06:29] LABS: GLUCOMETER DEV NAME(LOC) 2WR.2B; GLUCOSE,POINT OF CARE 99 MG/DL (70-110)
[2020-05-18] MEDS: FERROUS GLUCONATE 324 MG TABLET PO SCH ×2 (07:57→17:02)
[2020-05-18] MEDS: MetFORMIN HCL 500 MG TABLET PO SCH ×2 (07:57→17:02)
[2020-05-18 09:30] VITALS: BP 119/56
[2020-05-18] MEDS: ENOXAPARIN SODIUM 40 MG/0.4 ML PF SYRINGE SQ SCH (09:34)
[2020-05-18] MEDS: CALCIUM CIT/VITAMIN D3 200 MG-250 UNITS TABLET PO SCH ×2 (09:34→20:09)
[2020-05-18] MEDS: FAMOTIDINE 20 MG TABLET PO SCH ×2 (09:34→20:09)
[2020-05-18] MEDS: ASPIRIN 81 MG EC TABLET PO SCH (09:34)
[2020-05-18] MEDS: AmLODIPine BESYLATE 5 MG TABLET PO SCH (09:34)
[2020-05-18] MEDS: LOSARTAN POTASSIUM 25 MG TABLET PO SCH (09:34)
[2020-05-18] MEDS: SitaGLIPtin PHOSPHATE 25 MG TABLET PO SCH (09:34)
[2020-05-18] MEDS: DOCUSATE SODIUM 250 MG CAPSULE PO SCH ×2 (09:34→20:09)
[2020-05-18 15:22] LABS: GLUCOMETER DEV NAME(LOC) 2WR.2B; GLUCOSE,POINT OF CARE 104 MG/DL (70-110)
[2020-05-18 16:10] VITALS: BP 118/54
[2020-05-18 17:52] LABS: GLUCOMETER DEV NAME(LOC) 2WR.2B; GLUCOSE,POINT OF CARE 133 MG/DL (70-110)
[2020-05-18] MEDS: SENNA 187 MG TABLET PO SCH (20:09)
[2020-05-18 22:36] LABS: GLUCOMETER DEV NAME(LOC) 2WR.2B; GLUCOSE,POINT OF CARE 105 MG/DL (70-110)
[2020-05-19 00:04] VITALS: BP 140/53
[2020-05-19] MEDS ORDERED: INSU100V SQ (05:16)
[2020-05-19] MEDS: LEVOTHYROXINE SODIUM 50 MCG TABLET PO SCH (05:47)
[2020-05-19 06:17] LABS: GLUCOMETER DEV NAME(LOC) 2WR.1C; GLUCOSE,POINT OF CARE 98 MG/DL (70-110)
[2020-05-19 07:16] LABS: BASOPHILS % (AUTO) 1.1 % (0.0-2.0); EOSINOPHILS % (AUTO) 3.4 % (1.0-6.0); HEMATOCRIT 25.3 % (36-46); HEMOGLOBIN 8.8 g/dL (12.0-16.0); LYMPHOCYTES # (AUTO) 1.7 K/uL (1.0-4.8); LYMPHOCYTES % (AUTO) 23.4 % (22.0-44.0); MEAN CORPUSCULAR HEMOGLOBIN 31.7 pg (26.0-34.0); MEAN CORPUSCULAR HGB CONC 34.9 G/dL (31.0-37.0); MEAN CORPUSCULAR VOLUME 91 fL (80-100); MONOCYTES # (AUTO) 0.6 K/uL (0.1-1.0); MONOCYTES % (AUTO) 8.1 % (2.0-9.0); NEUTROPHILS # (AUTO) 4.7 K/uL (1.8-7.7); PLATELET COUNT (AUTO) 445 K/uL (150-450); RED BLOOD CELL COUNT(AUTO) 2.79 MIL/uL (4.00-5.20); RED CELL DISTRIBUTION WIDTH 14.7 % (11.5-14.5)
[2020-05-19 07:24] LABS: CALCIUM, TOTAL 8.9 mg/dL (8.8-10.5); CREATININE 1.03 mg/dL (0.60-1.30); POTASSIUM 5.6 mmol/L (3.5-5.1)
[2020-05-19 07:45] VITALS: BP 144/63
[2020-05-19] MEDS: SitaGLIPtin PHOSPHATE 25 MG TABLET PO SCH (08:15)
[2020-05-19] MEDS: ENOXAPARIN SODIUM 40 MG/0.4 ML PF SYRINGE SQ SCH (08:15)
[2020-05-19] MEDS: EPOETIN ALFA 10,000 UNITS/ML VIAL SQ SCH (08:15)
[2020-05-19] MEDS: CALCIUM CIT/VITAMIN D3 200 MG-250 UNITS TABLET PO SCH ×2 (08:15→21:23)
[2020-05-19] MEDS: DOCUSATE SODIUM 250 MG CAPSULE PO SCH ×2 (08:16→21:00)
[2020-05-19] MEDS: LOSARTAN POTASSIUM 25 MG TABLET PO SCH (08:16)
[2020-05-19] MEDS: FERROUS GLUCONATE 324 MG TABLET PO SCH ×2 (08:16→17:38)
[2020-05-19] MEDS: ASPIRIN 81 MG EC TABLET PO SCH (08:16)
[2020-05-19] MEDS: FAMOTIDINE 20 MG TABLET PO SCH ×2 (08:16→21:23)
[2020-05-19] MEDS: MetFORMIN HCL 500 MG TABLET PO SCH ×2 (08:16→17:38)
[2020-05-19] MEDS: AmLODIPine BESYLATE 5 MG TABLET PO SCH (08:16)
[2020-05-19] MEDS ORDERED: SODIUM POLYSTYRENE SULFONATE 15 GM/60 ML SUSPENSION BOTTLE PO ONE (10:00)
[2020-05-19 15:25] LABS: GLUCOMETER DEV NAME(LOC) 2WR.2B; GLUCOSE,POINT OF CARE 122 MG/DL (70-110)
[2020-05-19 16:01] VITALS: BP 107/54
[2020-05-19] MEDS: INSULIN LISPRO 100 UNITS/ML SQ PRN (17:41)
[2020-05-19 18:41] LABS: GLUCOMETER DEV NAME(LOC) 2WR.2B; GLUCOSE,POINT OF CARE 158 MG/DL (70-110)
[2020-05-19] MEDS ORDERED: AMLO-258 PO (20:30)
[2020-05-19] MEDS: SENNA 187 MG TABLET PO SCH (21:00)
[2020-05-19 21:57] LABS: GLUCOMETER DEV NAME(LOC) 2WR.1C; GLUCOSE,POINT OF CARE 91 MG/DL (70-110)
[2020-05-20 00:17] VITALS: BP 137/64
[2020-05-20 02:01] LABS: APPEARANCE,URINE CLEAR (CLEAR); BILIRUBIN,URINE NEGATIVE (NEGATIVE); GLUCOSE, URINE (UA) NEGATIVE (NEGATIVE); KETONES,URINE NEGATIVE (NEGATIVE); LEUKOCYTE ESTERASE ,URINE SMALL (NEGATIVE); NITRATE,URINE NEGATIVE (NEGATIVE); OCCULT BLOOD,URINE NEGATIVE (NEGATIVE); PH,URINE 5.5 (5.0-8.0); PROTEIN,URINE TRACE (NEGATIVE); UROBILINOGEN,URINE 0.2 mg/dL (<=1.0)
[2020-05-20 02:08] LABS: BACTERIA,URINE Few /HPF (None Seen); RBC,URINE 0-2 /HPF (0-2); SQUAMOUS EPITHELIAL CELL,UR Few /LPF (None Seen)
[2020-05-20] MEDS: LEVOTHYROXINE SODIUM 50 MCG TABLET PO SCH (05:37)
[2020-05-20 06:59] LABS: ANION GAP 7 mmol/L (8-16); CALCIUM, TOTAL 8.7 mg/dL (8.8-10.5); CARBON DIOXIDE 27 mmol/L (22-29); CHLORIDE 99 mmol/L (98-107); CREATININE 0.87 mg/dL (0.60-1.30); GLUCOSE,RANDOM 128 mg/dL (70-110); SODIUM SERUM 133 mmol/L (136-145); UREA NITROGEN, BLOOD 19 mg/dL (7-18)
[2020-05-20 07:02] LABS: GLOMERULAR FILTR. RATE CALC > 60 mL/min (>60)
[2020-05-20 07:10] VITALS: BP 154/72
[2020-05-20] MEDS: CALCIUM CIT/VITAMIN D3 200 MG-250 UNITS TABLET PO SCH (08:40)
[2020-05-20] MEDS: ENOXAPARIN SODIUM 40 MG/0.4 ML PF SYRINGE SQ SCH (08:40)
[2020-05-20] MEDS: FERROUS GLUCONATE 324 MG TABLET PO SCH (08:40)
[2020-05-20] MEDS: DOCUSATE SODIUM 250 MG CAPSULE PO SCH ×2 (08:40→08:47)
[2020-05-20] MEDS: ASPIRIN 81 MG EC TABLET PO SCH (08:40)
[2020-05-20] MEDS: FAMOTIDINE 20 MG TABLET PO SCH (08:40)
[2020-05-20] MEDS: SitaGLIPtin PHOSPHATE 25 MG TABLET PO SCH (08:41)
[2020-05-20] MEDS: MetFORMIN HCL 500 MG TABLET PO SCH (08:42)
[2020-05-20] MEDS ORDERED: AmLODIPine BESYLATE 10 MG TABLET PO SCH (09:00)
[2020-05-20] MEDS ORDERED: LOSARTAN POTASSIUM 25 MG TABLET PO SCH (09:00)
[2020-05-20 11:45] VITALS: BP 135/55
[2020-05-20 12:53] LABS: GLUCOMETER DEV NAME(LOC) 2WR.2B; GLUCOSE,POINT OF CARE 123 MG/DL (70-110)
[2020-05-20 16:21] LABS: GLUCOMETER DEV NAME(LOC) 2WR.1C; GLUCOSE,POINT OF CARE 123 MG/DL (70-110)
== END 2020-05-20 14:12 | disposition home or self-care (01) | DRG 536 ==
LOC: 2WR 17:17
PROVIDERS: ADMIT Physical Medicine & Rehabilitation; ATTEND Physical Medicine & Rehabilitation
DX: S72.142A Displaced intertrochanteric fracture of left femur, initial encounter for closed fracture (principal); E46 Unspecified protein-calorie malnutrition; N17.9 Acute kidney failure, unspecified; D64.9 Anemia, unspecified; E11.9 Type 2 diabetes mellitus without complications; E87.5 Hyperkalemia; K59.00 Constipation, unspecified; E03.9 Hypothyroidism, unspecified; E05.90 Thyrotoxicosis, unspecified without thyrotoxic crisis or storm; F03.90 Unspecified dementia, unspecified severity, without behavioral disturbance, psychotic disturbance, mood disturbance, and anxiety; I10 Essential (primary) hypertension; K21.9 Gastro-esophageal reflux disease without esophagitis; H91.90 Unspecified hearing loss, unspecified ear; M19.90 Unspecified osteoarthritis, unspecified site; M81.0 Age-related osteoporosis without current pathological fracture; E86.0 Dehydration; Z91.81 History of falling; Z68.27 Body mass index [BMI] 27.0-27.9, adult
CPT/HCPCS: 73503; 82271; 83036; 83540; 83550; 84132; 84443; 87081; 92523; 97110; 97112; 97116; 97162; 97166; 97530; 97535; 99366; J0885; J1650